=== PATIENT | female | born 1980 | race Caucasian/White ===

== ENCOUNTER 2019-03-27 14:11 | Emergency (ER) | payer SELFPAY ==
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
== END 2019-03-27 17:20 | disposition home or self-care (01) ==
LOC: DL.ED 14:11
DX: F15.10 Other stimulant abuse, uncomplicated (principal); F17.210 Nicotine dependence, cigarettes, uncomplicated; Z88.8 Allergy status to other drugs, medicaments and biological substances; X31.XXXA Exposure to excessive natural cold, initial encounter
CPT/HCPCS: 80305-QW; 81001; 87086; 99282; 99284